=== PATIENT | male | born 1945 | race Caucasian/White ===

== ENCOUNTER 2024-02-10 09:02 | Inpatient (IN) | payer MEDICARE, OTHER ==
[2024-02-10 10:32] LABS: ALT (SGPT) 36 U/L (8-55); AST (SGOT) 22 U/L (5-34); Albumin 3.7 g/dL (3.4-4.8); Alkaline Phosphatase 77 U/L (40-110); Anion Gap 19 mmol/L (10-20); BUN (Urea Nitrogen) 27 mg/dL (8.4-25.7); Bilirubin, Total 0.8 mg/dL (0.2-1.2); Calc. Creatinine Clearance 0 mL/min (70-130); Calcium 9.7 mg/dL (7.8-10.44); Carbon Dioxide 20 mmol/L (23-31); Chloride 103 mmol/L (98-107); Estimated GFR 26; Globulin 4.3 g/dL (2.4-3.5); Glucose 178 mg/dL (83-110); Lipase 20 U/L (8-78); Magnesium 1.7 mg/dL (1.6-2.6); Potassium 4.4 mmol/L (3.5-5.1); Sodium 138 mmol/L (136-145)
[2024-02-10 10:53] LABS: Hematocrit 43.7 % (42.0-52.0); Hemoglobin 14.6 g/dL (14.0-18.0); Mean Corpuscular HGB CONC 33.4 g/dL (32.0-36.0); Mean Corpuscular Hemoglobin 32.2 pg (27.0-31.0); Mean Corpuscular Volume 96.5 fL (78.0-98.0); Mean Platelet Volume 9.7 fL (7.4-10.4); Platelet Count 180 10x3/uL (130-400); RBC Distribution Width 13.5 % (11.5-14.5); Red Blood Cell (RBC) Count 4.53 mill/uL (4.70-6.10)
[2024-02-10 11:20] LABS: Band 22 % (5-11); Lymphocytes 20 % (21-51); Monocytes 23 % (0-10); Neutrophil 36 % (42-75); Ovalocytes SLIGHT = 2-5 cells HPF (0-1); Platelet Adequacy Comment Platelets Normal; Polychromasia SLIGHT = 2-3 cells HPF (0-2)
[2024-02-10 11:27] LABS: Troponin I Less than 0.010 ng/mL (< 0.028)
[2024-02-10 12:02] LABS: Influenza A by NAA Not Detected (NotDetected); Influenza B by NAA Not Detected (NotDetected); SARS-CoV-2 NAA Rapid Test Not Detected (NotDetected)
[2024-02-10] MEDS ORDERED: Cefepime 2 GM VIAL ONE (12:42)
[2024-02-10] MEDS ORDERED: Sodium Chloride 0.9% 100 ML ONE (12:42)
[2024-02-10] MEDS ORDERED: Vancomycin 1 GM in Premix 1 BAG IVPB SCH (13:15)
[2024-02-10] MEDS ORDERED: Ondansetron PF 4 MG/2 ML Vial IVP PRN (14:30)
[2024-02-10] MEDS ORDERED: Acetaminophen 325 MG TAB PO PRN (14:30)
[2024-02-10] MEDS ORDERED: Calcium Carbonate 500 MG ChewTAB PO PRN (14:30)
[2024-02-10 14:34] LABS: Lactic Acid 2.8 mmol/L (0.5-2.2)
[2024-02-10 19:20] LABS: Lactic Acid 2.3 mmol/L (0.5-2.2)
[2024-02-10 19:25] VITALS: BMI 34.6
[2024-02-10] MEDS: Vancomycin (BATCH) 2.5 GM in Premix 1 BAG IVPB SCH (19:43)
[2024-02-10] MEDS: Sodium Chloride 0.9% 1,000 ML IV SCH ×2 (19:44→19:46)
[2024-02-10] MEDS ORDERED: Dextrose 5% in Water 1,000 ML IV PRN (21:23)
[2024-02-10] MEDS ORDERED: Dextrose 50% Abboject 50 ML SYRINGE SLOW IVP PRN (21:23)
[2024-02-10] MEDS ORDERED: Glucagon 1 MG/ML KIT IM PRN (21:23)
[2024-02-10] MEDS: Famotidine/PF 20 mg/2ml Vial SLOW IVP SCH (21:31)
[2024-02-10] MEDS: metroNIDAZOLE 500 MG in Premix 1 BAG IVPB SCH (21:31)
[2024-02-11] MEDS: QUEtiapine 25 MG TAB PO SCH
[2024-02-11] MEDS: Cefepime 1 GM in Sodium Chloride 0.9% 100 ML IVPB SCH
[2024-02-11] MEDS: HumaLOG 300 UNITS/3 ML VIAL SC PRN ×2 (00:08→06:33)
[2024-02-11 04:46] LABS: ALT (SGPT) 27 U/L (8-55); AST (SGOT) 18 U/L (5-34); Albumin 2.9 g/dL (3.4-4.8); Alkaline Phosphatase 67 U/L (40-110); Anion Gap 13 mmol/L (10-20); BUN (Urea Nitrogen) 25 mg/dL (8.4-25.7); Bilirubin, Total 0.5 mg/dL (0.2-1.2); Calc. Creatinine Clearance 69 mL/min (70-130); Calcium 8.6 mg/dL (7.8-10.44); Carbon Dioxide 19 mmol/L (23-31); Chloride 109 mmol/L (98-107); Estimated GFR 51; Globulin 3.6 g/dL (2.4-3.5); Glucose 277 mg/dL (83-110); Lipase 28 U/L (8-78); Magnesium 1.7 mg/dL (1.6-2.6); Potassium 4.2 mmol/L (3.5-5.1); Protein, Total 6.5 g/dL (5.8-8.1); Sodium 137 mmol/L (136-145)
[2024-02-11 04:50] LABS: #Basophils Less than 0.03 10x3/uL (0.0-0.2); %Basophils 0.3 % (0.0-1.0); %Eosinophils 3.2 % (0.0-10.0); %Lymphocytes 26.3 % (21.0-51.0); %Monocytes 19.9 % (0.0-10.0); Hematocrit 37.2 % (42.0-52.0); Hemoglobin 12.3 g/dL (14.0-18.0); Mean Corpuscular HGB CONC 33.1 g/dL (32.0-36.0); Mean Corpuscular Hemoglobin 31.5 pg (27.0-31.0); Mean Corpuscular Volume 95.1 fL (78.0-98.0); Mean Platelet Volume 10.1 fL (7.4-10.4); Platelet Count 140 10x3/uL (130-400); RBC Distribution Width 13.4 % (11.5-14.5); Red Blood Cell (RBC) Count 3.91 mill/uL (4.70-6.10)
[2024-02-11] MEDS: Lactated Ringer's 1,000 ML IV SCH (09:58)
[2024-02-11] MEDS: Enoxaparin 30 MG (0.3 mL) SYRINGE SC SCH (09:59)
[2024-02-11] MEDS: Aspirin Chewable 81 MG TAB PO SCH (09:59)
[2024-02-11] MEDS: Venlafaxine HCl XR 75 MG CAP PO SCH (09:59)
[2024-02-11] MEDS: Magnesium 2 GM/50 ML(in water) 2 GM in Premix 1 BAG IVPB SCH (10:01)
[2024-02-11] MEDS: Insulin Glargine 30 UNITS/0.3 ML VIAL SC SCH ×2 (10:02→22:12)
[2024-02-11 15:43] LABS: Bacteria/HPF None Seen HPF (None Seen); Bilirubin Negative (Negative); Blood, Urine Negative (Negative); CAUTI Indications for Culture Alt mental st,lethar; Clarity Clear (Clear); Glucose, Urine (Dipstick) Greater than 1000 mg/dL (Negative); Ketone, Urine Negative (Negative); Leukocyte Negative Leu/uL (Negative); Nitrite Negative (Negative); Protein, Urine (Dipstick) Negative (Neg-Trace); RBC/HPF 0-3 HPF (0-3); Specific Gravity, Urine 1.012 (1.002-1.036); Squamous Epithelial None Seen HPF (0-3); Urobilinogen Normal mg/dL (Less than 2); WBC/HPF 0-3 HPF (0-3)
[2024-02-11 15:45] LABS: Urine Culture Reflex No No
[2024-02-11] MEDS: Rosuvastatin 10 MG TAB PO SCH (22:10)
[2024-02-11] MEDS: QUEtiapine 100 MG TAB PO SCH (22:10)
[2024-02-11] MEDS: Clopidogrel Bisulfate 75 MG TAB PO SCH (22:11)
[2024-02-12 04:36] LABS: Hematocrit 36.4 % (42.0-52.0); Hemoglobin 12.2 g/dL (14.0-18.0); Mean Corpuscular HGB CONC 33.5 g/dL (32.0-36.0); Mean Corpuscular Hemoglobin 31.6 pg (27.0-31.0); Mean Corpuscular Volume 94.3 fL (78.0-98.0); Mean Platelet Volume 9.5 fL (7.4-10.4); Platelet Count 139 10x3/uL (130-400); RBC Distribution Width 13.2 % (11.5-14.5); Red Blood Cell (RBC) Count 3.86 mill/uL (4.70-6.10)
[2024-02-12 04:50] LABS: Anion Gap 15 mmol/L (10-20); BUN (Urea Nitrogen) 18 mg/dL (8.4-25.7); Calc. Creatinine Clearance 89 mL/min (70-130); Calcium 8.8 mg/dL (7.8-10.44); Carbon Dioxide 18 mmol/L (23-31); Chloride 107 mmol/L (98-107); Estimated GFR 69; Glucose 330 mg/dL (83-110); Potassium 4.4 mmol/L (3.5-5.1); Sodium 136 mmol/L (136-145)
[2024-02-12 05:06] LABS: Band 26 % (5-11); Eosinophils 5 % (0-10); Lymphocytes 25 % (21-51); Monocytes 8 % (0-10); Neutrophil 36 % (42-75); Platelet Adequacy Comment Platelets Normal; Polychromasia SLIGHT = 2-3 cells HPF (0-2)
[2024-02-12] MEDS: Insulin Glargine 30 UNITS/0.3 ML VIAL SC SCH (13:29)
[2024-02-12] MEDS: Cefepime 2 GM in Sodium Chloride 0.9% 100 ML IVPB SCH (13:30)
[2024-02-12] MEDS: Enoxaparin 40 MG (0.4 mL) SYRINGE SC SCH (13:34)
[2024-02-12 17:32] VITALS: BMI 34.6
[2024-02-13 04:32] LABS: Hematocrit 36.4 % (42.0-52.0); Hemoglobin 12.2 g/dL (14.0-18.0); Mean Corpuscular HGB CONC 33.5 g/dL (32.0-36.0); Mean Corpuscular Hemoglobin 32.2 pg (27.0-31.0); Mean Platelet Volume 9.5 fL (7.4-10.4); Platelet Count 141 10x3/uL (130-400); RBC Distribution Width 13.1 % (11.5-14.5); Red Blood Cell (RBC) Count 3.79 mill/uL (4.70-6.10)
[2024-02-13 04:42] LABS: ALT (SGPT) 27 U/L (8-55); AST (SGOT) 21 U/L (5-34); Albumin 2.9 g/dL (3.4-4.8); Alkaline Phosphatase 71 U/L (40-110); Anion Gap 15 mmol/L (10-20); BUN (Urea Nitrogen) 16 mg/dL (8.4-25.7); Bilirubin, Total 0.2 mg/dL (0.2-1.2); Calc. Creatinine Clearance 83 mL/min (70-130); Calcium 8.9 mg/dL (7.8-10.44); Carbon Dioxide 20 mmol/L (23-31); Chloride 107 mmol/L (98-107); Estimated GFR 64; Globulin 3.7 g/dL (2.4-3.5); Glucose 343 mg/dL (83-110); Magnesium 1.7 mg/dL (1.6-2.6); Potassium 4.2 mmol/L (3.5-5.1); Protein, Total 6.6 g/dL (5.8-8.1); Sodium 138 mmol/L (136-145)
[2024-02-13 04:56] LABS: Band 2 % (5-11); Eosinophils 4 % (0-10); Lymphocytes 21 % (21-51); Macrocytosis SLIGHT = 6-15 cells HPF (0-5); Monocytes 11 % (0-10); Neutrophil 62 % (42-75); Platelet Adequacy Comment Platelets Normal; Polychromasia SLIGHT = 2-3 cells HPF (0-2)
[2024-02-13] MEDS: Famotidine/PF 20 mg/2ml Vial SLOW IVP SCH (09:14)
[2024-02-13] MEDS: Insulin Glargine 30 UNITS/0.3 ML VIAL SC SCH (09:15)
[2024-02-13] MEDS: Lactated Ringer's 1,000 ML IV SCH (09:17)
[2024-02-13] MEDS: Amoxicillin/Potassium Clav 875 MG TAB PO SCH (09:18)
[2024-02-13] MEDS: Saccharomyces boulardii 250 MG CAP PO SCH (09:24)
[2024-02-13 15:44] VITALS: BP 139/63; TEMP 97.3
[2024-02-13] MEDS ORDERED: Insulin Regular, Human 100 UNIT/ML 10 ML VIAL SC PRN ×2 (16:44)
[2024-02-13] MEDS ORDERED: Sterile Water 10 ML VIAL FS SCH (17:00)
[2024-02-13] MEDS ORDERED: OLANZapine 10 MG VIAL IM SCH ×2 (17:00)
[2024-02-13] MEDS: Insulin Lispro 100 UNIT/ML 10 ML VIAL SC SCH (17:04)
[2024-02-14 01:13] LABS: Adenovirus F 40-41 Not Detected (Not Detected); Astrovirus Not Detected (Not Detected); C. difficile toxin A+B Not Detected (Not Detected); Campylobacter by PCR DETECTED (Not Detected); Cryptosporidium Not Detected (Not Detected); Cyclospora cayetanensis Not Detected (Not Detected); Entamoeba histolytica Not Detected (Not Detected); Enteroaggregative E. coli Not Detected (Not Detected); Enteropathogenic E. coli DETECTED (Not Detected); Enterotoxigenic E. coli Not Detected (Not Detected); Giardia lamblia Not Detected (Not Detected); Norovirus GI-GII Not Detected (Not Detected); Plesiomonas shigelloides Not Detected (Not Detected); Rotavirus A Not Detected (Not Detected); Salmonella Not Detected (Not Detected); Sapovirus Not Detected (Not Detected); Shiga-toxin-producing E coli Not Detected (Not Detected); Shigella/Enteroinvasive E coli Not Detected (Not Detected); Vibrio Not Detected (Not Detected); Vibrio cholerae Not Detected (Not Detected); Yersinia enterocolitica Not Detected (Not Detected)
== END 2024-02-13 18:15 | DRG 872 ==
LOC: SUATTDRO 09:02 → ERS 09:02 → ERHOLD 14:53 → 2NO 17:59
PROVIDERS: ADMIT Internal Medicine; ATTEND Internal Medicine
DX: A41.9 Sepsis, unspecified organism (principal); N17.9 Acute kidney failure, unspecified; E87.20 Acidosis, unspecified; R65.20 Severe sepsis without septic shock; F03.90 Unspecified dementia, unspecified severity, without behavioral disturbance, psychotic disturbance, mood disturbance, and anxiety; I10 Essential (primary) hypertension; Z66 Do not resuscitate; E78.5 Hyperlipidemia, unspecified; E11.9 Type 2 diabetes mellitus without complications; F41.9 Anxiety disorder, unspecified; I25.10 Atherosclerotic heart disease of native coronary artery without angina pectoris; K86.89 Other specified diseases of pancreas; Z79.82 Long term (current) use of aspirin; Z79.4 Long term (current) use of insulin; Z79.899 Other long term (current) drug therapy
CPT/HCPCS: 36415; 36416; 71045; 74176; 80048; 80053; 81001; 83605; 83630; 83690; 83735; 83880; 84145; 84484; 85025; 87040; 87507; 93005; 96374; 96375; 97139; J0692; J1650; J1815; J3370; J3475; J3490; J7050; J7120; S0028